=== PATIENT | female | born 1935 | race Caucasian/White ===

== ENCOUNTER 2020-07-13 08:23 | Emergency (ER) | payer OTHER ==
[~2020-07-13] VITALS: Ht 165.1 cm; Wt 74.4 kg
[2020-07-13] MEDS ORDERED: ISOSORBIDE MONO30 M1 PO (08:34)
[2020-07-13] MEDS ORDERED: COZAAR 50 MG TA50 MG PO (08:34)
[2020-07-13] MEDS ORDERED: LEVO-T75 MCG PO (08:34)
[2020-07-13] MEDS ORDERED: CALCITRIOL0.25 MCG PO (08:35)
[2020-07-13] MEDS ORDERED: VITAMIN D350 MCG PO (08:35)
[2020-07-13 11:14] VITALS: BP 116/66
== END 2020-07-13 11:14 | disposition home or self-care (01) ==
LOC: ER 08:23
DX: S01.81XA Laceration without foreign body of other part of head, initial encounter (principal); S10.93XA Contusion of unspecified part of neck, initial encounter; M79.641 Pain in right hand; I10 Essential (primary) hypertension; E03.9 Hypothyroidism, unspecified; Z79.899 Other long term (current) drug therapy; Z88.8 Allergy status to other drugs, medicaments and biological substances; W10.8XXA Fall (on) (from) other stairs and steps, initial encounter; Y93.89 Activity, other specified; Y92.238 Other place in hospital as the place of occurrence of the external cause; Y99.8 Other external cause status